=== PATIENT | male | born 1985 | race Caucasian/White ===

== ENCOUNTER 2016-12-13 06:54 | Day surgery (SDC) | payer OTHER ==
[~2016-12-13] VITALS: Ht 177.8 cm; Wt 113.4 kg
[2016-12-13] MEDS ORDERED: NEOMYCIN/POLYMYXIN/BACITRACIN OIN 15 GM TUBE TP ONE (08:01)
[2016-12-13] MEDS ORDERED: PHENYLEPHRINE 1% 15 ML BTL NS ONE (08:01)
[2016-12-13] MEDS ORDERED: LIDOCAINE/EPI MPF 1%1:200000 30 ML VIAL INJ ONE (08:01)
[2016-12-13] MEDS ORDERED: DEXAMETHASONE 4 MG/ML VIAL ONE (08:25)
[2016-12-13] MEDS ORDERED: SUCCINYLCHOLINE CHLORIDE 200 MG/10 ML VIAL IVP ONE (08:25)
[2016-12-13] MEDS ORDERED: LIDOCAINE 2% 100 MG/5 ML SYR IVP ONE (08:25)
[2016-12-13] MEDS ORDERED: PROPOFOL 200 MG/20 ML VIAL IV ONE (08:25)
[2016-12-13] MEDS ORDERED: hydrALAZINE 20 MG/ML VIAL ONE (08:25)
[2016-12-13] MEDS ORDERED: DESFLURANE 240 ML BTL INH ONE (08:25)
[2016-12-13] MEDS ORDERED: ceFAZolin 1,000 MG VIAL ONE (08:29)
[2016-12-13] MEDS ORDERED: MIDAZOLAM 2 MG/2 ML VIAL ONE (08:36)
[2016-12-13] MEDS ORDERED: fentaNYL 0.05 MG/ML VIAL ONE (08:36)
[2016-12-13] MEDS ORDERED: DEXAMETHASONE 10 MG/ML VIAL ONE (09:02)
[2016-12-13] MEDS ORDERED: HYDROmorphone 1 MG/ML AMP IVP PRN (09:05)
[2016-12-13] MEDS ORDERED: ONDANSETRON 4 MG/2 ML VIAL IVP PRN (09:05)
[2016-12-13] MEDS ORDERED: PROMETHAZINE 25 MG/ML VIAL IVP PRN (09:35)
[2016-12-13] MEDS ORDERED: MEPERIDINE 25 MG/ML SYR IVP PRN (09:35)
[2016-12-13] MEDS ORDERED: guaiFENesin DM 200/20 MG-10 ML 10 ML UDC PO PRN (09:35)
[2016-12-13] MEDS ORDERED: ACETAMIN/CODEINE 120/12MG-5ML 5 ML UDC PO PRN (09:35)
[2016-12-13] MEDS: HYDROmorphone PFS 2 MG/ML SYR ONE ×2 (09:50→10:00)
[2016-12-13] MEDS ORDERED: ONDANSETRON 4 MG/2 ML VIAL ONE (10:20)
== END 2016-12-13 13:20 | disposition home or self-care (01) ==
LOC: MDS 06:54 → MMU 06:58 → MDS 13:20
PROVIDERS: ATTEND Otolaryngology
DX: J34.2 Deviated nasal septum (principal); J34.3 Hypertrophy of nasal turbinates; F32.9 Major depressive disorder, single episode, unspecified
CPT/HCPCS: 93005; J0330; J0360; J0690; J1100; J1170; J2001; J2175; J2250; J2405; J2550; J2704; J3010